=== PATIENT | female | born 1990 | race Caucasian/White ===

== ENCOUNTER 2016-04-29 20:39 | Emergency (ER) | payer MEDICAID ==
[~2016-04-29] VITALS: Ht 157.5 cm; Wt 54.4 kg
[~2016-04-29 20:39] MED LIST: PREN-96 PO
[2016-04-29 21:19] LABS: Basophils # (auto) 0 uL; Basophils % (auto) 0.5 % (0.0-2.0); DEFINITIVE VIEW TRANSMISSION; Eosinophils # (auto) 0.1 uL; Hematocrit 33.9 % (36.0-46.0); Lymphocytes # (auto) 1.6 uL; Lymphocytes % (auto) 18.7 % (10.0-50.0); Mean Corpuscular Hemoglobin 24.7 pg (28.0-32.0); Mean Corpuscular Hgb Conc. 32.5 g/dL (32.0-36.0); Mean Corpuscular Volume 75.8 fL (80.0-100.0); Mean Platelet Volume 9.9 fL (7.4-10.4); Monocytes # (auto) 0.8 uL; Monocytes % (auto) 9.1 % (0.0-12.0); Neutrophils # (auto) 5.9 uL; Neutrophils % (auto) 70.7 % (37.0-80.0); Platelet Count (auto) 272 10^3/uL (140-450); Red Cell Distribution Width 18.9 % (11.6-16.0); White Blood Cell 8.4 10^3/uL (4.4-10.8)
[2016-04-29 21:43] LABS: Alkaline Phosphatase 62 U/L (45-117); Anion Gap 10 (5-15); Aspartate Aminotransferase 14 U/L (15-37); BUN/Creatinine Ratio 24.2; Bilirubin, Total 0.2 mg/dL (0.2-1.0); Blood Urea Nitrogen 16 mg/dL (7-18); Calcium 8.6 mg/dL (8.5-10.1); Carbon Dioxide 28 mmol/L (21-32); Chloride 104 mmol/L (98-107); GFR African American 142 mL/min; GFR Non-African American 117 mL/min; Glucose 95 mg/dL (74-106); Potassium 3.6 mmol/L (3.5-5.1); Sodium 142 mmol/L (136-145); Total Protein 7.8 g/dL (6.4-8.2)
[2016-04-29 21:52] LABS: INR 1.09 (0.9-1.15); Partial Thromboplastin Time 30.3 sec (22.64-33.71); Prothrombin Time 11.2 sec (9.37-12.3)
[2016-04-29 22:34] LABS: Urine Bilirubin Negative (Negative); Urine Blood Negative /uL (Negative); Urine Color Yellow (Yellow); Urine Glucose Normal (Normal); Urine Ketone Negative (Negative); Urine Nitrite Negative (Negative); Urine RBC <1 /hpf (0 - 4); Urine Squamous Epithelial Cell FEW /hpf (<5); Urine Urobilinogen Normal (Negative)
[2016-04-30] MEDS ORDERED: IBUPROFEN 600 MG TAB PO ONE (06:00)
[2016-04-30] MEDS ORDERED: SODIUM CHLORIDE 0.9% 1,000 ML IV ONE (06:15)
[2016-04-30 07:29] VITALS: BP 133/75
== END 2016-04-30 07:40 | disposition home or self-care (01) ==
LOC: ER 20:47
DX: F41.9 Anxiety disorder, unspecified (principal)
CPT/HCPCS: 36415; 71020; 80053; 81001; 81025; 84484; 84702; 85025; 85610; 85730; 93005; 99285; J7030

== ENCOUNTER 2017-11-16 16:35 | Emergency (ER) | payer MEDICAID ==
[~2017-11-16] VITALS: Ht 160 cm; Wt 59.0 kg
[2017-11-16 18:21] VITALS: BP 149/83
[2017-11-16] MEDS ORDERED: HYDROcodone-ACET 5/325MG TAB PO ONE (19:00)
== END 2017-11-16 19:41 | disposition home or self-care (01) ==
LOC: ER 16:41
DX: M54.2 Cervicalgia (principal); M62.838 Other muscle spasm
CPT/HCPCS: 72040

== ENCOUNTER 2024-10-04 17:41 | Emergency (ER) | payer MEDICAID ==
[~2024-10-04] VITALS: Ht 160 cm; Wt 70.0 kg
[2024-10-04 17:49] VITALS: BP 121/71; PULSE 96; RESP 20; TEMP 98.3; O2SAT 97
[2024-10-04 21:23] LABS: Urine Protein, UAD Negative (Negative)
== END 2024-10-04 19:59 | disposition left against medical advice (07) ==
LOC: ER 17:49
DX: R10.9 Unspecified abdominal pain (principal); Z53.21 Procedure and treatment not carried out due to patient leaving prior to being seen by health care provider; V89.2XXA Person injured in unspecified motor-vehicle accident, traffic, initial encounter; Y93.I9 Activity, other involving external motion; Y92.488 Other paved roadways as the place of occurrence of the external cause; Y99.8 Other external cause status
CPT/HCPCS: 81001

== ENCOUNTER 2024-10-04 17:58 | Observation (INO) | payer MEDICAID ==
[~2024-10-04] VITALS: Ht 160 cm; Wt 68.0 kg
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
--- NOTE | 2024-10-08 12:56 | DVHDS2 ---
Physician Discharge Progress N Final Diagnosis: labor check Operations or Procedures: Operations or Procedures nst reactive reviwed,sono Condition on Discharge: Good Disposition: Home Discharge Instructions: Diet: Regular Activity: No Restrictions, As Tolerated Medications: na Follow Up Care: Specialist: 3d Discharge Statement: "Patient was advised to return to the ER or call 911 if any headaches, dizziness, shortness of breath, chest pain, abdominal pain, bleeding, fevers, or worsening of medical condition. Patient was counseled about treatment plan, medications, possible side effects, patientverbalized understanding. All questions were answered to the best of my ability. This discharge took greater then 30 minutes in planning, reviewing document ation, counseling the patient, and discussing with other team members." Visit Coding OBGYN Date of Service: Oct 04, 2024 Billing Provider: HARISH JACOBO DO DIRECTOR FIELD SERVICES Common Visit Codes: 46765-[id number] OBS CARE (HIGH) DIRECTOR FIELD SERVICES Procedure Codes: 18207-95- NON-STRESS TEST HARISH JACOBO DO Oct 08, 2024 12:56
== END 2024-10-04 20:11 | disposition home or self-care (01) ==
LOC: LDRP 17:58
PROVIDERS: ADMIT Obstetrics & Gynecology; ATTEND Obstetrics & Gynecology
DX: O26.892 Other specified pregnancy related conditions, second trimester (principal); R10.9 Unspecified abdominal pain; Z3A.27 27 weeks gestation of pregnancy; Z79.899 Other long term (current) drug therapy
CPT/HCPCS: 76815; 81002; 94760; G0378; 59025